=== PATIENT | female | born 1940 | race Caucasian/White ===

== ENCOUNTER 2016-12-01 14:55 | Inpatient (IN) | payer MEDICARE ==
[~2016-12-01] VITALS: Ht 157.5 cm; Wt 75.1 kg
[2016-12-01] VITALS (10 sets, daily range): BP systolic 117–143; BP diastolic 53–63
[2016-12-01] MEDS ORDERED: CIPROFLOXACIN500 MG PO (15:04)
[2016-12-01] MEDS ORDERED: ASPIRIN 81MG TA81 MG PO (15:04)
[2016-12-01] MEDS ORDERED: SIMVASTATIN10 MG PO (15:05)
[2016-12-01] MEDS ORDERED: LISINOPRIL 20MG20 MG PO (15:05)
--- NOTE | 2016-12-01 15:25 | Emergency Room Report ---
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 N Clinical Suspician of Infection? N Mental Status: 1 - Regular (Normal Baseline) Sepsis Risk:Low Sepsis Risk Have you (or family members/close friends) recently traveled outside the [place]? N If Yes, where/when: Have you had exposure to infectious disease within the past month? N TB? Other? Specify: Comment The patient complains of syncope and rapid heartbeat. She says that she had a doctor's appointment on Tuesday 2 days ago. Prior to going to that appointment while fixing coffee in her kitchen she had a syncopal episode. She was diaphoretic and dizzy before she passed out. She saw her primary care provider that day and was diagnosed with urinary tract infection, started on antibiotics. She says that she was told that she could go get an electrocardiogram and a chest x-ray done, but the patient did not go to have that done until today. She says when she took her blood pressure today her heart rate was very high so she decided to have the testing done today. She went to [facility] outpatient department and had an electrocardiogram and chest x-ray. She was found to be in rapid atrial flutter and admission was recommended, but she declined and came to this emergency department because her primary care provider comes here. She does not have chest pain. She has continued to have some episodes of dizziness and diaphoresis off and on since Tuesday. She has no prior history of cardiac disease or pulmonary disease. No history of atrial fibrillation. ALLERGIES Coded Allergies: No Known Allergies (12/01/16) Home Medications Reported Medications LISINOPRIL (Lisinopril) 10 MG PO DAILY Simvastatin 20 MG PO DAILY Loratadine (Claritin 10MG) 10 MG PO DAILY ASPIRIN (Aspirin) 81 MG PO DAILY Ciprofloxacin HCl 500 MG PO BID History Medical History General Angina: No [place]: No Hypertension? Yes Hyperlipidemia? Yes CHF? No COPD? No Asthma? No CVA? No Seizures? No Diabetes? Yes Insulin Dependent: No Insulin Pump: No Home FSBS? No GB Disease: No MRSA? No TB? No Cancer? No Immunization Hx DT/Tetanus UNKNOWN Surgical Hx Previous Surgery?Y TUBAL Social History Smoking Hx Smoker: Never Smoker Tobacco: No Alcohol Alcohol: No Review of Systems All Other Systems Reviewed and Negative Constitutional diaphoresis Cardiovascular palpitations, syncope Physical Exam Vital Signs Vital Signs Date Time Temp Pulse Resp B/P Pulse O2 O2 Flow FiO2 Ox Delivery Rate 12/01 1717 97.6 93 18 131/63 95 ROOM AIR 12/01 1651 97.3 90 18 126/64 95 12/01 1642 90 18 126/64 95 12/01 1606 98 18 119/89 95 12/01 1457 97.3 98 18 117/53 96 General Appearance no apparent distress Eye Exam - bilateral eye normal exam, bilateral eye PERRL, bilateral eye EOMI Ear, Nose, Throat hearing grossly normal, normal ENT inspection Neck normal inspection, non-tender, supple, full range of motion Respiratory Status Yes: trachea midline, chest symmetrical. No: respiratory distress. Lung Sounds bilateral: normal breath sounds, lungs clear. Cardiovascular normal exam, no peripheral edema, no gallop, no JVD, no murmur, no rub, normal peripheral pulses, extra beats Peripheral Pulses Pulses normal Yes Gastrointestinal normal bowel sounds, normal exam, non tender, soft, no organomegaly Extremities non-tender, normal range of motion, normal inspection Neurologic alert, normal exam, oriented x 3 Mental status normal mood/affect Skin intact, normal color, warm/dry Medical Decision Making LABS/Meds/Orders Pt receiving controlled substance in ED? No Results/Orders Laboratory Tests 12/01/16 1715: POC Glucose 184 H 12/01/16 1625: Urine Color DK YELLOW, Urine Appearance SL CLOUDY, Urine pH 5.5, Ur Specific [place] 1.025, Urine Protein TRACE H, Urine Ketones TRACE H, Urine Blood 1+ H , Urine Nitrate NEGATIVE, Urine Bilirubin NEGATIVE, Urine Urobilinogen 1.0, Ur Leukocyte Esterase 1+ H, Urine RBC 3-5, Urine WBC 10-20, Ur Squamous Epith Cells 10-20, Urine Bacteria 2+, Hyaline Casts OCC, WBC Casts OCC, Urine Mucus 1+ , Urine Glucose 1+ H 12/01/16 1518: TSH 1.14, Thyroxine (T4) 10.5 12/01/16 1518: Sodium 137, Potassium 4.2, Chloride 103, Carbon Dioxide 26, BUN 20 H, Creatinine 1.3 H, Estimated Creat Clear 39 L, Estimated GFR (MDRD) 40 L, Glucose 203 H, Calcium 9.1, Total Bilirubin 0.7, AST 26, ALT 42, Alkaline Phosphatase 71, Creatine Kinase 23 L, CK-MB (CK-2) Rel Index 2.2, CK and CKMB Interp < 0.5, Troponin I 0.02, Total Protein 7.6, Albumin 3.2 L, Globulin 4.4 H, Albumin/Globulin Ratio 0.7 L, WBC 6.8, RBC 4.53, Hgb 13.7, Hct 41.6, MCV 91.8, RDW 12.1, Plt Count 206, MPV 8.5, Gran % 77.4, Gran # 5.3, Lymphocytes % 14.9, Monocytes % 6.4, Eosinophils % 0.9, Basophils % 0.4, Lymphocytes # 1.0, Monocytes # 0.4, Eosinophils # 0.1, Basophils # 0.0, PUBS MCHC 32.8, MCH 30.2 Current Medication Orders Sig/Ely Start time Last Medication Dose Route Stop Time Status Admin Levofloxacin 250 MG DAILY 12/02 09 UNV PO Rivaroxaban 20 MG DAILY 12/02 0900 UNV PO Polyethylene Glycol 17 GM DAILY 12/01 1704 UNV 12/01 PO 1718 Diagnostic Test (Pha) 1 EACH W/MEALS&HS 12/01 1700 UNV 12/01 FS 01/30 1659 1716 Insulin Human [rDNA See Dose W/MEALS&HS 12/01 1700 UNV 12/01 origin] Insts (1) SC 1718 Diltiazem HCl 100 MG .Q10H 12/01 1645 UNV 12/01 Sodium Chloride 100 ML IV 1712 Influenza Virus 0.5 ML PRN PRN 12/01 164 UNV Vaccine Quadrival IM Nicotine 21 MG DAILYP PRN 12/01 164 UNV TD Sodium Chloride 10 ML PRN PRN 12/01 1645 UNV IV Diltiazem HCl 100 MG ONCE ONE 12/01 1630 AC 12/01 Sodium Chloride 100 ML IV 12/02 0229 1633 Diltiazem HCl 10 MG ONCE ONE 12/01 1630 DC 12/01 IV 12/01 1631 1632 Rivaroxaban 20 MG ONCE ONE 12/01 1630 DC 12/01 PO 12/01 1631 1632 Sodium Chloride 100 ML .STK-MED ONE 12/01 1628 DC IV Diltiazem HCl 0 .STK-MED ONE 12/01 1626 DC IV Diltiazem HCl 0 .STK-MED ONE 12/01 1626 DC IV Aspirin 324 MG ONCE ONE 12/01 1530 DC 12/01 PO 12/01 1531 1528 Aspirin 0 .STK-MED ONE 12/01 1525 DC .ROUTE Sodium Chloride 10 ML PRN PRN 12/01 1515 AC IV 12/02 1507 Dose Instructions: (1)Insulin Human [rDNA origin]: SEE ADMIN CRITERIA FOR MEDIUM INTENSITY Orders Procedure Date/time Status -1999 CALORIE ADA 12/01 D Active ADMITTED PT IS ACTUALLY IN BED 12/01 1718 Active Decision to admit 12/01 1631 Active CULTURE, URINE 12/01 1625 Active URINALYSIS/COMPLETE 12/01 1612 Complete SENIOR QUALITY ASSURANCE SPECIALIST 12/01 1524 Active THYROID STIMULATING HORMONE 12/01 1520 Complete THYROXINE (T4) 12/01 1520 Complete ELECTROCARDIOGRAM REQUEST 12/01 1508 Active IV SALINE LOCK 12/01 1508 Active CBC WITH AUTO DIFF 12/01 1508 Complete CARDIAC ENZYMES 12/01 1508 Complete CHEM 12 PROFILE 12/01 1508 Complete ADMIT PATIENT 12/01 UNK Active 12 LEAD EKG-BESSON (INITIAL) 12/01 UNK Active PULSE OXIMETRY REQUEST 12/01 UNK Active OXYGEN REQUEST 12/01 UNK Active ECHO ADULT 12/01 UNK Active VITAL SIGNS 12/01 UNK Active SLOT SERVICE SPECIALIST 12/01 UNK Active IV SALINE LOCK 12/01 UNK Active CODE STATUS 12/01 UNK Active PATIENT ACTIVITY ORDER 12/01 UNK Active PHYSICIANS CONSULT 12/01 UNK Active CM/EKG CM/EKG Comments EKG interpreted by Ignacio Javed MD: Rhythm: sinus Rate: 100 [place]: normal Ectopy: Premature supraventricular complexes Conduction: normal ST Segment Changes: none T Wave Changes: none Q Waves: none No evidence of acute ischemia or injury Baseline artifact present, but I consider the EKG adequate for accurate interpretation. Electrocardiogram from [facility] brought in by patient done on this date at 12:24 PM shows: EKG interpreted by Ignacio Javed MD: Rhythm: Rapid atrial flutter Rate: 166 [place]: normal Ectopy: none Conduction: normal ST Segment Changes: Nonspecific T Wave Changes: Nonspecific Q Waves: none No evidence of acute ischemia or injury Progress - 4:00 PM: The patient was in sinus rhythm when I went in to talk to her about her results MRI was speaking with her she went into atrial fibrillation and flutter and has been going in and out of atrial fibrillation and flutter in sinus rhythm since that time for the last 15 minutes. I spoke with Dr. Ortiz for Dr. Parker and he requests cardiology consultation to determine what they recommend. 4:20 PM: Case discussed with Dr. Richardson. He requests Cardizem 10 mg bolus, 10 mg per hour drip and is a relatively 20 mg per day. Echocardiogram tomorrow. Departure Departure Disposition Still a Patient Clinical Impression Primary Impression: Paroxysmal atrial fibrillation Condition STABLE Referrals Vicente Parker MD (Family) ED Critical Care Critical Care Yes Time spent 30-74 min Vital system(s) involved: Circulatory Failure I was present at bedside for Coordinating pt's care, Interpreting EKGs/Strips , During my initial exam, Reviewing lab results, Reviewing old records, Discussing pt condition, For re-examinations at 182
[2016-12-01 15:34] LABS: LYMPH % 14.9 % (10-50.0)
[2016-12-01 15:43] LABS: HEMOGLOBIN 13.7 g/dL (12.2-16.2)
[2016-12-01 15:50] LABS: BUN 20 mg/dL (7-18); GFR (ESTIMATED) 40 ML/MIN (59-)
[2016-12-01 16:33] LABS: URINE BILIRUBIN - DIPSTICK NEGATIVE (NEG); URINE BLOOD 1+ (NEG)
[2016-12-01] MEDS ORDERED: LISINOPRIL 10MG10 MG PO (16:57)
[2016-12-01] MEDS ORDERED: SIMVASTATIN20 MG PO (16:57)
--- NOTE | 2016-12-01 17:05 | HISTORY AND PHYSICAL REPORT ---
History and Physical ([facility]) Date of admission: 12/01/16 Chief complaint: syncope, chest pain History: History of Present Illness: Ms. Martinez is a 76yo female who was just recently seen in the office of [facility] for a wellness physical. Before that appt, she had passed out at home after a dizzy spell. She had also had UTI symptoms for 1-2 weeks prior to that appt. She was examined and started on cipro for her UTI and was told to go get an EKG and CXR. She did not do these until today because when she took her blood pressure, her heart rate was very high. She went to [facility] outpatient department and had an electrocardiogram and chest x-ray. She was found to be in rapid atrial flutter and admission was recommended but she declined and came to this emergency department because her primary care provider comes here. She has continued to have some episodes of dizziness and diaphoresis off and on since Tuesday. She has no prior history of cardiac disease or pulmonary disease. No history of atrial fibrillation. She has been in and out of atrial flutter in the ER therefore she will be admitted and cardiology will be consulted. Past Medical History: Medical History: CAD? No Angina: No NC: No Hypertension? Yes Hyperlipidemia? Yes CHF? No DVT? No PE? No COPD? No Asthma? No GERD? No Thyroid Problems? No Hypothyroidism? No CVA? No Seizures? No Diabetes? Yes Insulin Dependent: No Insulin Pump: No Home FSBS? No GB Disease: No MRSA? No TB? No Cancer? No Surgical history: Previous Surgery?Y TUBAL CSCOPE Medications: Reported Medications LISINOPRIL (Lisinopril) 10 MG PO DAILY Simvastatin 20 MG PO DAILY ASPIRIN (Aspirin) 81 MG PO DAILY Ciprofloxacin HCl 500 MG PO BID Allergies: Coded Allergies: No Known Allergies (12/01/16) Family History: Family history: Postive for: DM, cancer, stroke. Social History: Smoking Hx Tobacco: No Smoker: Never Smoker Type: N/A Packs/day: N/A Are you exposed to second hand No Alcohol: Alcohol: No Hx of Drug Use: Drug Use? No Review of Systems: Constitutional Positive for: fatigue, lethargy, malaise, weak. ENT Positive for: nasal congestion. No: sore throat. Cardiovascular Positive for: chest pain. No: edema, palpitations. Respiratory No: shortness of air, productive cough (sputum), wheezing. GI Positive for: constipation. No: abdominal pain, diarrhea, nausea, vomitting. (female) No: flank pain, frequency, hematuria. Neurological Positive for: dizziness, syncope, weakness. No: headache. Musculoskeletal No: extremity pain, joint pain, myalgias. Physical Exam: Vital signs: 1ST Vital Signs Result Date Time Pulse Ox 96 12/01 1456 B/P 117/53 12/01 1456 Temp 97.3 12/01 1456 Pulse 98 12/01 1456 Resp 18 12/01 1456 Exam: General appearance: alert, awake, no acute distress Eyes: EOM's w/normal ROM, PERRLA ENT: mucous membranes moist, nose normal, pharynx normal Neck: non-tender, no carotid bruit, supple Cardiovascular: regular rate & rhythm Respiratory: clear to auscultation ABD: non-distended, normal bowel sounds, no rebound, soft, no guarding, slight ttp in the LUQ and epigastric area Extremities: no peripheral edema Musculoskeletal: equal muscle strength, motor intact, sensation intact Skin: normal color Neuro: normal mood/affect, oriented, speech clear Lab data: Labs: Laboratory Tests 12/01/16 1625: Urine Color DK YELLOW, Urine Appearance SL CLOUDY, Urine pH 5.5, Ur Specific [place] 1.025, Urine Protein TRACE H, Urine Ketones TRACE H, Urine Blood 1+ H , Urine Nitrate NEGATIVE, Urine Bilirubin NEGATIVE, Urine Urobilinogen 1.0, Ur Leukocyte Esterase 1+ H, Urine RBC 3-5, Urine WBC 10-20, Ur Squamous Epith Cells 10-20, Urine Bacteria 2+, Hyaline Casts OCC, WBC Casts OCC, Urine Mucus 1+ , Urine Glucose 1+ H 12/01/16 1518: TSH 1.14, Thyroxine (T4) 10.5 12/01/16 1518: Sodium 137, Potassium 4.2, Chloride 103, Carbon Dioxide 26, BUN 20 H, Creatinine 1.3 H, Estimated Creat Clear 39 L, Estimated GFR (MDRD) 40 L, Glucose 203 H, Calcium 9.1, Total Bilirubin 0.7, AST 26, ALT 42, Alkaline Phosphatase 71, Creatine Kinase 23 L, CK-MB (CK-2) Rel Index 2.2, CK and CKMB Interp < 0.5, Troponin I 0.02, Total Protein 7.6, Albumin 3.2 L, Globulin 4.4 H, Albumin/Globulin Ratio 0.7 L, WBC 6.8, RBC 4.53, Hgb 13.7, Hct 41.6, MCV 91.8, RDW 12.1, Plt Count 206, MPV 8.5, Gran % 77.4, Gran # 5.3, Lymphocytes % 14.9, Monocytes % 6.4, Eosinophils % 0.9, Basophils % 0.4, Lymphocytes # 1.0, Monocytes # 0.4, Eosinophils # 0.1, Basophils # 0.0, PUBS MCHC 32.8, MCH 30.2 Microbiology 12/01 1625 URINE CC: Urine Culture - RECD Diagnosis(es): 1. Atrial flutter with rapid ventricular response Status: Acute 2. Urinary tract infection Status: Acute 3. Constipation Status: Acute 4. Renal insufficiency 5. Hyperlipidemia 6. Hypertension 7. Diabetes type 2, controlled Plan: The ER physician discussed the case with Dr. Richardson. The patient was given a cardizem 10 mg bolus and started on a 10 mg per hour drip. She was also started on xarelto. An Echocardiogram was ordered for tomorrow. She will be monitored overnight. She will be continued on abx for her UTI and will order miralax for constipation. (Shanita Harvey) Diagnosis(es): 1. Atrial flutter with rapid ventricular response Status: Acute 2. Urinary tract infection Status: Acute 3. Constipation Status: Acute 4. Renal insufficiency 5. Hyperlipidemia 6. Hypertension 7. Diabetes type 2, controlled Plan: Patient seen and agree with above note. (Baljinder Ortiz MD) at 1705 at 1721
[2016-12-01] MEDS ORDERED: CLARITIN 10MG T10 MG PO (17:41)
[2016-12-02] VITALS (16 sets, daily range): BP systolic 102–143; BP diastolic 55–65
--- NOTE | 2016-12-02 07:52 | PHARMACY CLINIC NOTE ---
Patient Demographics Patient Demographics Admission date: 12/01/16 Date: 12/02/16 Time: 751 Allergies Coded Allergies: No Known Allergies (12/01/16) HEIGHT- FT: 5 IN: 2.00 K.588 VTE General Information Labs: Laboratory Tests 12/01 1518 Hematology Hgb (12.2 - 16.2 g/dL) 13.7 Hct (37.0 - 47.0 %) 41.6 Plt Count (142 - 424 K/mm3) 206 Disclaimer The following section includes nursing documentation that has been pulled in for pharmacy review. Patient's VTE score: 1 Patient's VTE Risk: VERY LOW RISK Clinical trial participant? No VTE prophylaxis [id number] VTE prophylaxis ordered? Yes Type of prophylaxis/treatment: JOÃO (XARELTO ALSO ORDERED) at 0752
--- NOTE | 2016-12-02 08:06 | CONSULT NOTE ---
See Addendum Standard Demographics Patient Demo Date of Consultation: 12/02/16 Referring Provider: Baljinder Ortiz MD Reason for Consultation: atrial fibrillation with rapid response PRIMARY DIAGNOSIS: PAROXYSMAL AFIB Problem list Problem list: 1. Diabetes mellitus, diet controlled 2. HTN, Treated for several years 3. Hyperlipidemia, treated for several years 4. Strong family history of CVAs and both parents and children. 5. Remote CVA per patient, no residual effects. History of present illness: History of present illness: 76-year-old white female admitted for new onset atrial fibrillation with a rapid ventricular response. Patient relates a 3-4 day history of sudden onset of upper chest discomfort with discomfort in her neck. Symptoms of fatigue have been associated with it. 3 days ago the patient was in her kitchen when she became severely diaphoretic and subsequently passed out. She has had some "funny feeling in her head" recently and in conjunction with the episode of passing out she was seen at primary care office and diagnosed with urinary tract infection for which she has been on antibiotics. She also received immunizations the same time. She denies any chest pain, pressure or tightness prior to passing out but feels like she might have had some of the upper chest discomfort as noted above. She has had some exertional shortness of breath recently. Patient was with her son yesterday an [facility] area when she developed recurrent weakness and dizziness for which she went to the ER. Was diagnosed with atrial fibrillation and hospitalization recommended the patient declined to come here for admission due to her family doctor being in this area. She was started on IV Cardizem with subsequent conversion to sinus rhythm. She's had no further chest discomfort or neck discomfort overnight but while up in the bathroom this morning the patient became weak and symptoms of difficulty thinking clearly. This resolved when the patient was back in bed. Her blood pressure while standing up was noted to be around 110 systolic. Her blood pressure while in bed and is in the 140s systolic. Cardiology consulted for evaluation and recommendations. Past Medical History: General: Hypertension Yes CVA No Seizures No TB No COPD No Asthma No Diabetes Yes Insulin Dependent No Insulin Pump No Angina No LA No Hyperlipidemia Yes Urinary No Cancer No Rheumatic H.D. No Ulcers No MRSA No GB Disease No Past Surgical HX: Previous Surgery?Y TUBAL Allergies Coded Allergies: No Known Allergies (12/01/16) Home medications: Reported Medications LISINOPRIL (Lisinopril) 10 MG PO DAILY Simvastatin 20 MG PO DAILY Loratadine (Claritin 10MG) 10 MG PO DAILY ASPIRIN (Aspirin) 81 MG PO DAILY Ciprofloxacin HCl 500 MG PO BID Current Medications: Current Medications Levofloxacin 250 MG 1100 PO Rivaroxaban 20 MG DAILY PO Sodium Chloride 100 ML .STK-MED ONE IV (DC) Diltiazem HCl 0 .STK-MED ONE IV (DC) Acetaminophen 500 MG Q4HP PRN PO Acetaminophen 0 .STK-MED ONE PO (DC) Levofloxacin 0 .STK-MED ONE PO (DC) Levofloxacin 250 MG ONCE ONE PO (DC) Polyethylene Glycol 17 GM DAILY PO Diagnostic Test (Pha) 1 EACH W/MEALS&HS FS Insulin Human [rDNA origin] SEE ADMIN CRITERIA FOR MEDIUM INTENSITY W/MEALS&HS SC Diltiazem HCl 100 MG .Q10H IV Sodium Chloride 100 ML Influenza Virus Vaccine Quadrival 0.5 ML PRN PRN IM Nicotine 21 MG DAILYP PRN TD Sodium Chloride 10 ML PRN PRN IV Diltiazem HCl 100 MG ONCE ONE IV (DC) Sodium Chloride 100 ML Diltiazem HCl 10 MG ONCE ONE IV (DC) Rivaroxaban 20 MG ONCE ONE PO (DC) Sodium Chloride 100 ML .STK-MED ONE IV (DC) Diltiazem HCl 0 .STK-MED ONE IV (DC) Diltiazem HCl 0 .STK-MED ONE IV (DC) Aspirin 324 MG ONCE ONE PO (DC) Aspirin 0 .STK-MED ONE .ROUTE (DC) Sodium Chloride 10 ML PRN PRN IV Immunization HX DT/Tetanus < 1 Yr Ago Flu [id number] Pneumonia RECEIVED IN PAST TB Test in last year No Family history Family HX Family Hx Insignificant No Diabetes No CAD No Hypertension No Hyperlipidemia No Cancer Yes TB No Social Hx: Smoking HX Tobacco No Type N/A Packs/day N/A Are you/the child exposed to second-hand smoke: No Alcohol Alcohol: No Hx of Drug Use Drug Use? No Review of systems: Constitutional weakness. Respiratory SOB with excertion. Cardiovascular chest pain Gastrointestinal/Abdominal abdominal pain Genitourinary No: no symptoms reported. Musculoskeletal neck pain. Neurological Yes: headache. Exam: Admission Vital Signs: 1ST Vital Signs Result Date Time Pulse Ox 96 12/01 1457 B/P 117/53 12/01 1457 Temp 97.3 12/01 145 Pulse 98 12/01 1457 Resp 18 12/01 1457 O2 Delivery ROOM AIR 12/01 1716 Last Vital Signs: Vital Signs Result Date Time Pulse Ox 98 12/02 0500 B/P 102/59 12/02 06 O2 Delivery ROOM AIR 12/02 599 Pulse 81 12/02 06 Resp 20 12/02 06 Temp 98.2 12/02 0400 Exam General appearance: alert, awake, no acute distress Neck: no carotid bruit, no JVD Cardiovascular: regular rate & rhythm, no murmur Respiratory: clear to auscultation, good air movement ABD: soft, no tenderness Extremities: moves all, no peripheral edema Neuro: alert, intact, oriented Laboratory data: Laboratory Tests 12/01/161714: POC Glucose 184 H 12/01/16 1625: Urine Color DK YELLOW, Urine Appearance SL CLOUDY, Urine pH 5.5, Ur Specific [place] 1.025, Urine Protein TRACE H, Urine Ketones TRACE H, Urine Blood 1+ H , Urine Nitrate NEGATIVE, Urine Bilirubin NEGATIVE, Urine Urobilinogen 1.0, Ur Leukocyte Esterase 1+ H, Urine RBC 3-5, Urine WBC 10-20, Ur Squamous Epith Cells 10-20, Urine Bacteria 2+, Hyaline Casts OCC, WBC Casts OCC, Urine Mucus 1+ , Urine Glucose 1+ H 12/01/16 1518: TSH 1.14, Thyroxine (T4) 10.5 12/01/16 1518: Sodium 137, Potassium 4.2, Chloride 103, Carbon Dioxide 26, BUN 20 H, Creatinine 1.3 H, Estimated Creat Clear 39 L, Estimated GFR (MDRD) 40 L, Glucose 203 H, Calcium 9.1, Total Bilirubin 0.7, AST 26, ALT 42, Alkaline Phosphatase 71, Creatine Kinase 23 L, CK-MB (CK-2) Rel Index 2.2, CK and CKMB Interp < 0.5, Troponin I 0.02, Total Protein 7.6, Albumin 3.2 L, Globulin 4.4 H, Albumin/Globulin Ratio 0.7 L, WBC 6.8, RBC 4.53, Hgb 13.7, Hct 41.6, MCV 91.8, RDW 12.1, Plt Count 206, MPV 8.5, Gran % 77.4, Gran # 5.3, Lymphocytes % 14.9, Monocytes % 6.4, Eosinophils % 0.9, Basophils % 0.4, Lymphocytes # 1.0, Monocytes # 0.4, Eosinophils # 0.1, Basophils # 0.0, PUBS MCHC 32.8, MCH 30.2 Microbiology Date/Time Procedure - Status Source Growth 12/01 1625 Urine Culture - RES URINE CC Plan: Assessment: 1. Atrial fibrillation with a rapid ventricular response now converted to sinus rhythm after IV Cardizem. Patient has been started on anticoagulation therapy in the form Xarelto. Echocardiogram has been performed with results pending at this time. Function is normal. 2. Episodes of anterior chest discomfort with neck discomfort with concern for unstable angina pectoris in a patient with risk factors of diabetes, hypertension and hyperlipidemia. Troponin is normal and electrocardiogram is without acute changes. Would recommend proceeding with a Lexiscan Myoview today. Patient does not feel that she can walk on treadmill due to recent episode of passing out and lightheadedness this morning. 3. Hyperlipidemia, on statin therapy 4. 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 Hypertension 6. Diabetes mellitus, history of diet controlled Recommendations: See above. at 1613
--- NOTE | 2016-12-02 08:31 | ACUTE CARE PROGRESS NOTE (QUA) ---
Progress Notes Subjective Date 12/02/16 Time 0827 Note Pt has remained in sinus rhythm while on the cardizem drip. She is still getting lightheaded and dizzy when up and feels like she could pass out. She had an echo this am. She and her daughter are both very concerned with her symptoms and are requesting a carotid U/S and imaging of the brain d/t the hx of strokes in her family. She denies any other pain. She slept off and on last night. Objective Findings Last VS-Temp:98.2 B/P:102/59 Pulse:81 Resp:20 SaO2:98 ROOM AIR Last weight lbs:164 oz:7 K.588 Method:Bed Scales Laboratory Tests 12/01/16 1715: POC Glucose 184 H 12/01/16 1625: Urine Color DK YELLOW, Urine Appearance SL CLOUDY, Urine pH 5.5, Ur Specific [place] 1.025, Urine Protein TRACE H, Urine Ketones TRACE H, Urine Blood 1+ H , Urine Nitrate NEGATIVE, Urine Bilirubin NEGATIVE, Urine Urobilinogen 1.0, Ur Leukocyte Esterase 1+ H, Urine RBC 3-5, Urine WBC 10-20, Ur Squamous Epith Cells 10-20, Urine Bacteria 2+, Hyaline Casts OCC, WBC Casts OCC, Urine Mucus 1+ , Urine Glucose 1+ H 12/01/16 1518: TSH 1.14, Thyroxine (T4) 10.5 12/01/16 1518: Sodium 137, Potassium 4.2, Chloride 103, Carbon Dioxide 26, BUN 20 H, Creatinine 1.3 H, Estimated Creat Clear 39 L, Estimated GFR (MDRD) 40 L, Glucose 203 H, Calcium 9.1, Total Bilirubin 0.7, AST 26, ALT 42, Alkaline Phosphatase 71, Creatine Kinase 23 L, CK-MB (CK-2) Rel Index 2.2, CK and CKMB Interp < 0.5, Troponin I 0.02, Total Protein 7.6, Albumin 3.2 L, Globulin 4.4 H, Albumin/Globulin Ratio 0.7 L, WBC 6.8, RBC 4.53, Hgb 13.7, Hct 41.6, MCV 91.8, RDW 12.1, Plt Count 206, MPV 8.5, Gran % 77.4, Gran # 5.3, Lymphocytes % 14.9, Monocytes % 6.4, Eosinophils % 0.9, Basophils % 0.4, Lymphocytes # 1.0, Monocytes # 0.4, Eosinophils # 0.1, Basophils # 0.0, PUBS MCHC 32.8, MCH 30.2 Microbiology 12/01 1625 URINE CC: Urine Culture - RES Exam General appearance: alert, awake, no acute distress Cardiovascular: regular rate & rhythm Respiratory: clear to auscultation ABD: non-distended, normal bowel sounds, no rebound, soft, no tenderness, no guarding Extremities: no peripheral edema Assessment/Plan Problem List 1. Atrial flutter with rapid ventricular response Status: Acute 2. Syncope Status: Acute 3. Urinary tract infection Status: Acute 4. Constipation Status: Acute 5. Renal insufficiency 6. Hyperlipidemia 7. Hypertension 8. Diabetes type 2, controlled Plan: Cardiology has seen patient. An echo has been done this am. Awaiting results. Cardiology plans a stress test. Will order a carotid U/S. This inpt stay is expected to cross 2 MNs from start of care Yes (Shanita Harvey) Assessment/Plan Problem List 1. Atrial flutter with rapid ventricular response Status: Acute 2. Syncope Status: Acute 3. Urinary tract infection Status: Acute 4. Constipation Status: Acute 5. Renal insufficiency 6. Hyperlipidemia 7. Hypertension 8. Diabetes type 2, controlled Comments: Patient seen and agree with above note. (Baljinder Ortiz MD) at 0831 at 0823
--- NOTE | 2016-12-02 09:35 | CARDIOVASCULAR REPORT ---
"Cerebrovascular Exam Indications: 780.4 Dizziness and giddiness. 780.2 Syncope and collapse. IMPRESSIONS 1. The bilateral vertebral arteries are patent with normal antegrade flow. 2. Study suggests 50-69% stenosis involving the right internal carotid artery. 3. Study suggests 20-49% stenosis involving the left internal carotid artery. History: Risk factors: Hypertension. Hyperlipidemia. Carotid duplex study. Complete study and Doppler flow study including spectral analysis, color and mejia scale imaging. Height: Height: 157.5cm. Height: 62in. Weight: Weight: 68.9kg. Weight: 151.7lb. Body mass index: BMI: 27.8kg/m^2. Body surface area: BSA: 1.76m^2. Location: Bedside. Patient status: Inpatient. Tables: Arterial flow: + +--------+--------+ |Location |V sys |V ed | + +--------+--------+ |Right CCA - proximal|91.1cm/s|15.7cm/s| + +--------+--------+ |Right CCA - distal |77.8cm/s|18.9cm/s| + +--------+--------+ |Right ECA |195cm/s |--------| + +--------+--------+ |Right ICA - proximal|146cm/s |22.4cm/s| + +--------+--------+ |Right ICA - mid |139cm/s |33.7cm/s| + +--------+--------+ |Right ICA - distal |81cm/s |16.7cm/s| + +--------+--------+ |Right vertebral |44.2cm/s|--------| + +--------+--------+ |Left CCA - proximal |102cm/s |15.7cm/s| + +--------+--------+ |Left CCA - distal |99.2cm/s|19.6cm/s| + +--------+--------+ |Left ECA |140cm/s |--------| + +--------+--------+ |Left ICA - proximal |96.4cm/s|23.7cm/s| + +--------+--------+ |Left ICA - mid |84.2cm/s|23.3cm/s| + +--------+--------+ |Left ICA - distal |84.2cm/s|21.4cm/s| + +--------+--------+ |Left vertebral |51.5cm/s|--------| + +--------+--------+ Velocity ratios: + + + + + + | |Right, V sys|Right, V ed|Left, V sys|Left, V ed| + + + + + + |Max ICA/dist CCA|1.88 |1.78 |0.97 |1.21 | + + + + + + (Report amended ) Electronically signed by: Shivam Reyes [id number]"
--- NOTE | 2016-12-02 13:06 | RADIOLOGY REPORT PS360 ---
PROCEDURE: 2-D M-mode and color Doppler study INDICATIONS FOR THE TEST: Chest pain COPD Heart Murmur Tobacco Smoking Palpitations Fatigue SyncopeX Edema HypertensionXDiabetes MellitusX Rheumatic Fever SOB FISCHER Obesity HyperlipidemiaX Family History HD Additional History AF PATIENT INFORMATION HEIGHT: 62 WEIGHT:152 GENDER: Female B/P:117/53 2-D/M-MODE INTERPRETATION: 2-D MEASUREMENTS OBSERVED VALUES IN CMS Right Ventricular Dimension (RVDd) 1.8 Interventricular Septum (Thickness)(IVsd) .9 Left Ventricular Internal Dimensions(LVIDd) 5.3 Left Ventricular Posterior Wall (Thickness)(LVPWd) .9 Aortic Root 3.4 Aortic Cusp Separation 1.9 Left Atrial Dimensions (LAD) 2.6 2D 1. Technically difficult study because of the patient's factor and poor acoustic windows. 2. The left atrium is mildly enlarged, left ventricle is normal size, there is mild qualitative concentric left ventricular hypertrophy present, visually estimated ejection fraction approximately 50%, inferobasal and posterobasal wall appears to be hypokinetic as compared to rest of the myocardial segments, endocardial surface of poorly visualized. 3. The aortic valve is thickened and calcified with mild restriction the leaflet mobility. 4. The mitral valve has mitral annular calcification. 5. The tricuspid valve is grossly normal. 6. Pulmonic valve is poorly visualized. 7. No significant pericardial effusion noted. DOPPLER INTERROGATION: 1. The maximum aortic out flow velocity recorded study 2.14 m/s, resulting in a mean gradient across valve of 10 mmHg, this represents mild aortic stenosis, there is mild aortic insufficiency present. 2. The mitral inflow velocity within normal range, there is no mitral stenosis, there is mild mitral regurgitation. Diastolic parameters are inconclusive. 3. There is mild tricuspid regurgitation noted, tricuspid and jet velocity insufficient for calculation of the right ventricular systolic pressure. CONCLUSION: 1. Mildly enlarged left atrium, normal left ventricular size, mild concentric left ventricular hypertrophy present, visually estimated ejection fraction 50% with segmental wall motion abnormality described above, diastolic parameters are inconclusive. Endocardial surface of poorly visualized. 2. Thickened and calcified aortic valve with mean gradient across valve of 10 mmHg, this represents mild aortic stenosis, there is mild aortic insufficiency present. 3. Mild mitral and tricuspid regurgitation, tricuspid and jet velocity insufficient for calculation of the right ventricular systolic pressure. 4. No significant pericardial effusion noted.
--- NOTE | 2016-12-02 14:39 | RADIOLOGY REPORT PS360 ---
History and Indications: Hypertension diabetes, chest pain, shortness of breath, syncope Procedure: Patient received a 0.4 mg of Lexiscan, resting heart rate was 81 beats per, resting blood pressure 109/51, with Lexiscan maximum heart rate achieved was 81 bpm which is less than 85% of the maximum predicted heart rate and a blood pressure was 83/35. With Lexiscan patient complained of nausea and lightheadedness requiring intravenous Aminophyllin to reverse the symptoms. Electrocardiogram: Resting electrocardiogram showed sinus rhythm poor R wave progression, with Lexiscan there is less than 1.5 ST segment depression noted from the baseline EKG. The EKG portion of the Lexiscan Myoview is nondiagnostic. Cardiac stress and resting SPECT images: Cardiac stress and rest SPECT images were obtained using technetium 99 Myoview 11.0 mCi at rest and 32.1 mCi at stress, gated SPECT further analysis of segmental wall motion and calculation of the ejection fraction also done. Cardiac stress and rest images show decreased tracer activity in anteroapical wall which improves on the resting images, suggestive of reversible ischemia, computer derived ejection fraction is 64% with mild anteroapical hypokinesis, right ventricle is mildly dilated with normal contractility. Conclusion: 1. The EKG portion of the Lexiscan Myoview is nondiagnostic. 2. Scintigraphic evidence of mild reversible ischemia involving the anteroapical wall, computer derived ejection fraction is 64% with segmental wall motion abnormality as described above, right ventricle is mildly enlarged with normal contractility 3. Abnormal Lexiscan Myoview study.
[2016-12-03] VITALS (20 sets, daily range): BP systolic 112–135; BP diastolic 47–84
[2016-12-03 05:52] LABS: HEMOGLOBIN 12.6 g/dL (12.2-16.2); LYMPH % 13.4 % (10-50.0)
--- NOTE | 2016-12-03 08:22 | ACUTE CARE PROGRESS NOTE (QUA) ---
Progress Notes Subjective Date 12/03/16 Time 0821 Note Pt had an abnormal stress test yesterday. Cardiology has her scheduled for a cath this am. She and her family state she may not want to have it done here. They would like to speak with cardiology before they proceed. She denies any more near syncopal episodes but states she is nauseated today from PND. Objective Findings Last VS-Temp:98.0 B/P:122/60 Pulse:85 Resp:18 SaO2:96 ROOM AIR Last weight lbs:165 oz:9 K.098 Method:Bed Scales Laboratory Tests 12/03/16 0530: Sodium 136, Potassium 4.1, Chloride 105, Carbon Dioxide 23, BUN 33 H, Creatinine 1.6 H, Estimated Creat Clear 34 L, Estimated GFR (MDRD) 31 L, Glucose 212 H, Calcium 9.1, Total Bilirubin 0.6, AST 22, ALT 37, Alkaline Phosphatase 68, Total Protein 7.0, Albumin 2.8 L, Globulin 4.2 H, Albumin/ Globulin Ratio 0.7 L, PT 15.3 H, INR 1.41 H, APTT 35.9 H, WBC 7.8, RBC 4.11 L, Hgb 12.6, Hct 37.2, MCV 90.6, RDW 12.0, Plt Count 218, MPV 8.3, Gran % 78.8, Gran # 6.1, Lymphocytes % 13.4, Monocytes % 5.8, Eosinophils % 1.8, Basophils % 0.2, Lymphocytes # 1.0, Monocytes # 0.5, Eosinophils # 0.1, Basophils # 0.0, PUBS MCHC 33.8, MCH 30.6 12/02/16 1629: POC Glucose 171 H 12/02/16 1455: POC Glucose 199 H Exam General appearance: alert, awake, no acute distress Cardiovascular: regular rate & rhythm Respiratory: clear to auscultation ABD: non-distended, normal bowel sounds, no rebound, soft, no guarding, slightly ttp in the periumbilical region Extremities: no peripheral edema Assessment/Plan Problem List 1. Abnormal stress test Status: Acute 2. Atrial flutter with rapid ventricular response Status: Acute 3. Syncope Status: Acute 4. Urinary tract infection Status: Acute 5. Constipation Status: Acute 6. Renal insufficiency 7. Hyperlipidemia 8. Hypertension 9. Diabetes type 2, controlled Plan: Pt scheduled for a heart cath today. Will have cardiology go and discuss procedure with the patient. This inpt stay is expected to cross 2 MNs from start of care Yes (Shanita Harvey) Assessment/Plan Problem List 1. Abnormal stress test Status: Acute 2. Atrial flutter with rapid ventricular response Status: Acute 3. Syncope Status: Acute 4. Urinary tract infection Status: Acute 5. Constipation Status: Acute 6. Renal insufficiency 7. Hyperlipidemia 8. Hypertension 9. Diabetes type 2, controlled 10. Paroxysmal atrial fibrillation Comments: Patient seen and agree with above note. (Baljinder Ortiz MD) at 0830 at 0858
--- NOTE | 2016-12-03 08:55 | ACUTE CARE PROGRESS NOTE (QUA) ---
See Addendum Progress Notes Subjective Date 12/03/16 Time 0850 Note 76 yo WF in bed in NAD. Multiple questions answered regarding the cardiac cath and pt agrees to proceed. No chest pain overnight. Objective Findings Last VS-Temp:98.0 B/P:122/60 Pulse:85 Resp:18 SaO2:96 ROOM AIR Last weight lbs:165 oz:9 K.098 Method:Bed Scales Exam General appearance: alert, awake, no acute distress Cardiovascular: regular rate & rhythm Respiratory: clear to auscultation Reviewed: medications, vital signs, lab results Assessment/Plan Problem List 1. Abnormal stress test Status: Acute Assessment/Plan: Cardiac cath today. 2. Atrial flutter with rapid ventricular response Status: Acute Assessment/Plan: On both CCB and BB. On Xarelto. 3. Syncope Status: Acute 4. Urinary tract infection Status: Acute 5. Constipation Status: Acute 6. Renal insufficiency 7. Hyperlipidemia 8. Hypertension 9. Diabetes type 2, controlled 10. Paroxysmal atrial fibrillation Assessment/Plan: On CCB and BB and Xarelto. Patient condition Stable Plan: As above. This inpt stay is expected to cross 2 MNs from start of care Yes at 0855
--- NOTE | 2016-12-03 12:19 | RADIOLOGY REPORT PS360 ---
CARDIAC CATHETERIZATION DATE OF CATHETERIZATION:12/03/2016 11:53 AM PROCEDURES: 1. Left heart catheterization 2. Left ventriculogram 3. Selective coronary angiogram INDICATION FOR TEST: 1. Abnormal Myoview 2. Admission to the hospital with unstable angina Informed consent was obtained prior to the procedure. COMPLICATIONS: None ESTIMATED BLOOD LOSS: Less than 10 ml. TECHNIQUE: One percent lidocaine used to anesthetize the right anterior aspect of the wrist. The right radial artery was accessed via the Seldinger technique. A 6 Spanish sheath was placed in the right radial artery. 2.5 mg of verapamil, 800 mcg of nitroglycerin and 5000 U Heparin were given through the arterial sheath. The Jazzy catheter was also used to perform left heart catheterization and left ventriculography. At the end of the procedure the patient was transferred to the post-op holding area in stable condition for arterial sheath removal. ANGIOGRAPHIC RESULTS: 1. The left main artery normal 2. The left anterior descending artery is proximally normal and has mid vessel concentric 40% stenosis. A large first diagonal artery has a mid vessel 40% stenosis 3. The circumflex artery is a large dominant vessel and has 20% stenoses proximally and in the mid segment 4. The right coronary artery small nondominant and normal 5. The BLANCHARD ventriculogram reveals normal 65% 6. The left ventricular end-diastolic pressure elevated at 20 to 25 mmHg IMPRESSION: 1. Moderate nonflow limiting coronary artery disease as described above 2. Normal ejection fraction 3. Moderately elevated LVEDP consistent with diastolic dysfunction and or hypertensive heart disease PLAN: 1. Medical management for coronary arteries 2. Daily baby aspirin 3. Risk factor modification 4. LDL less than 55 5. Patient might benefit from low dose diuretics in order to decrease LVEDP
--- NOTE | 2016-12-03 15:28 | DISCHARGE SUMMARY STANDARD ---
Discharge Summary (FCA2) Date of admission: 12/01/16 Date of discharge: 12/03/16 Problem List: 1. Abnormal stress test 2. Atrial flutter with rapid ventricular response 3. Syncope 4. Urinary tract infection 5. Constipation 6. Renal insufficiency 7. Hyperlipidemia 8. Hypertension 9. Diabetes type 2, controlled 10. Paroxysmal atrial fibrillation 11. Coronary artery disease History of present illness: Ms. Martinez is a 76yo female who was just recently seen in the office of [facility] for a wellness physical. Before that appt, she had passed out at home after a dizzy spell. She had also had UTI symptoms for 1-2 weeks prior to that appt. She was examined and started on cipro for her UTI and was told to go get an EKG and CXR. She did not do these until the day of admission because when she took her blood pressure, her heart rate was very high. She went to [facility] outpatient department and had an electrocardiogram and chest x-ray. She was found to be in rapid atrial flutter and admission was recommended but she declined and came to this emergency department because her primary care provider is here. She continued to have some episodes of dizziness and diaphoresis off and on since Tuesday. She had no prior history of cardiac disease or pulmonary disease. No history of atrial fibrillation. She was in and out of atrial flutter in the ER therefore she was admitted and cardiology was consulted. Exam on admission: General appearance: alert, awake, no acute distress Eyes: EOM's w/normal ROM, PERRLA ENT: mucous membranes moist, nose normal, pharynx normal Neck: non-tender, no carotid bruit, supple Cardiovascular: regular rate & rhythm Respiratory: clear to auscultation ABD: non-distended, normal bowel sounds, no rebound, soft, no guarding, slight ttp in the LUQ and epigastric area Extremities: no peripheral edema Musculoskeletal: equal muscle strength, motor intact, sensation intact Skin: normal color Neuro: normal mood/affect, oriented, speech clear Hospital Course: The patient was admitted and started on a cardizem drip and given xarelto. She converted back to NSR. Cardiology saw the patient an ordered a stress test which was abnormal, therefore they performed a heart cath. It showed moderate nonflow limiting CAD with a normal EF and a moderately elevated LVEDP. They recommended she be discharged on xarelto, ASA 81mg, continue her statin, cardizem, and metoprolol. They also recommended low dose lasix. She had a carotid U/S as well that showed 50-69% stenosis on the right and 20-49% on the left. Will monitor this for now. She is stable to be discharged home on her new medication and she will need to finish her abx for her UTI that she has at home. Will f/u with both Cardiology and Dr. Parker. Discharge medications: Stop taking the following medications: LISINOPRIL (Lisinopril) 10 MG TABLET ORAL DAILY Continue taking these medications: ASPIRIN (Aspirin) 81 MG TAB.CHEW 81 MILLIGRAM ORAL DAILY Ciprofloxacin HCl (Ciprofloxacin HCl) 500 MG TABLET 500 MILLIGRAM ORAL TWICE A DAY Simvastatin (Simvastatin) 20 MG TABLET 20 MILLIGRAM ORAL DAILY Loratadine (Claritin 10MG) 10 MG TABLET 10 MILLIGRAM ORAL DAILY Start taking the following new medications: Furosemide (Lasix) 20 MG TABLET 20 MILLIGRAM ORAL DAILY Qty = 30 No Refills Rivaroxaban (Xarelto) 20 MG TABLET 20 MILLIGRAM ORAL DAILY Qty = 30 Refills = 11 Metoprolol Tartrate (Metoprolol) 25 MG TABLET 25 MILLIGRAM ORAL TWICE A DAY Qty = 60 Refills = 11 Diltiazem HCl (Diltiazem 24HR Cd) 120 MG CAP.ER.24H 120 MILLIGRAM ORAL DAILY Qty = 30 Refills = 11 Disposition: F/U with: Vicente Parker MD Follow up: 7 DAYS Activity: Cont Current activity Diet: Continue same diet Discharge to: HOME Agency needed? N at [id number]
[2016-12-03] MEDS ORDERED: LASIX20 MG PO (15:53)
[2016-12-03] MEDS ORDERED: XARELTO20 MG PO (15:54)
[2016-12-03] MEDS ORDERED: METOPROLOL25 MG PO (15:55)
[2016-12-03] MEDS ORDERED: DILTIAZEM 24HR120 MG PO (15:55)
--- NOTE | 2016-12-03 15:58 | ACUTE CARE PROGRESS NOTE (QUA) ---
Progress Notes Subjective Date 12/03/16 Time 1557 Assessment/Plan Problem List 1. Abnormal stress test Status: Acute 2. Atrial flutter with rapid ventricular response Status: Acute 3. Syncope Status: Acute 4. Urinary tract infection Status: Acute 5. Constipation Status: Acute 6. Renal insufficiency 7. Hyperlipidemia 8. Hypertension 9. Diabetes type 2, controlled 10. Paroxysmal atrial fibrillation 11. Coronary artery disease This inpt stay is expected to cross 2 MNs from start of care Yes Comments: Cath shows non obstructive CAD. Patient wants to home tonight. She will stop Lisinopril and cont. Metoprolol, Diltiazem, Lasix and Xarelto at home. F/U with Dr. Parker in 1 week. at [id number]
== END 2016-12-03 16:40 | disposition home or self-care (01) | DRG 287 ==
LOC: ER 14:55 → 2ND 16:29
PROVIDERS: Emergency Medicine; Internal Medicine
PROC: B2111ZZ Fluoroscopy of Multiple Coronary Arteries using Low Osmolar Contrast (ICD-10-PCS; 2016-12-03)
PROC: B2151ZZ Fluoroscopy of Left Heart using Low Osmolar Contrast (ICD-10-PCS; 2016-12-03)
PROC: 4A023N7 Measurement of Cardiac Sampling and Pressure, Left Heart, Percutaneous Approach (ICD-10-PCS; principal; 2016-12-03 11:00)
DX: I25.110 Atherosclerotic heart disease of native coronary artery with unstable angina pectoris (principal); I48.92 Unspecified atrial flutter; E11.9 Type 2 diabetes mellitus without complications; N39.0 Urinary tract infection, site not specified; I12.9 Hypertensive chronic kidney disease with stage 1 through stage 4 chronic kidney disease, or unspecified chronic kidney disease; R94.39 Abnormal result of other cardiovascular function study
CPT/HCPCS: A9502; C1725; C1769; J1644; J2785; Q9967

== ENCOUNTER → 2017-01-18 | Outpatient (CLI) | payer MEDICARE ==
[~2017-01-18] MED LIST: ASPIRIN 81MG TA81 MG PO; CIPROFLOXACIN500 MG PO; CLARITIN 10MG T10 MG PO; DILTIAZEM 24HR120 MG PO; LASIX20 MG PO; LISINOPRIL 10MG10 MG PO; LISINOPRIL 20MG20 MG PO; METOPROLOL25 MG PO; SIMVASTATIN10 MG PO; SIMVASTATIN20 MG PO; XARELTO20 MG PO
--- NOTE | 2017-01-18 16:28 | RADIOLOGY REPORT PS360 ---
US [id number] HISTORY: HEMATURIA ORDERING PHYSICIAN: Kendall Pierce MD PATIENT AGE: 76 years COMPARISON: None FINDINGS: RIGHT KIDNEY:Unremarkable. Normal size and echogenicity. No hydronephrosis 10 x 4 x 6 cm. LEFT KIDNEY:Unremarkable. No hydronephrosis. Normal size and echogenicity. 11 x 4 x 5 cm OTHER FINDINGS: Only mild cortical thinning. No hydronephrosis IMPRESSION: Minimal cortical thinning otherwise negative bilateral renal ultrasound. No hydronephrosis or renal mass
== END ==
LOC: RAD 10:00
DX: R31.9 Hematuria, unspecified (principal)